=== PATIENT | male | born 1980 | race Caucasian/White ===

== ENCOUNTER 2025-01-08 13:45 | Emergency (ER) | payer OTHER, SELFPAY ==
[2025-01-08 13:51] VITALS: BP 144/91; PULSE 87; RESP 28; TEMP 36.6; O2SAT 100
--- OUTSIDE RECORDS SUMMARY | 2025-01-08 13:52 | XMS_ITS | Clinical Summary ---
Author Organization [facility] Medical Office Building [address] Address [address] [place] [address] Care Team Providers Care Dependency Program Director Name Role Phone Maksim Haines Primary Care Provider [phone] Allergies Active Allergy Reactions Criticality Noted Date Comments Red Dye Stomach upset Reaction: stomach upset, Medications cyclobenzaprine (FLEXERIL) 10 mg tablet Take 1 tablet (10 mg total) by mouth 3 (three) times a day as needed for muscle spasms 12 tablet Active Additional Information Patient not taking.Reported on 09/15/2022 Active Problems Problem Noted Date Diagnosed Date Family history of colon cancer 02/16/2023 Family history of colon cancer in father 022 Overview (06/07/2021): Added automatically from request for surgery [id number] Encounter for screening colonoscopy 06/07/2021 Overview (06/07/2021): Added automatically from request for surgery [id number] Inguinal hernia 05/31/2016 Overview (08/29/2016): Inguinal hernia Immunizations Immunization Administration Dates Next Due Tdap 09/15/2022 Surgical History Surgery Date Site/Laterality Comments OTHER SURGICAL HISTORY TEP endoscopic left inguinal hernia repair COLONOSCOPY 04/07/2023 Family History Medical History Relation Name Comments Colon cancer Father Cancer, colon; Relation Name Status Comments Father Social History Tobacco Use Types Packs/Day Years Used Date Smoking Tobacco: Heavy Smoker Cigarettes Tobacco Cessation:Ready to Q uit: Not Asked; Counseling Given: Not Answered Comments:Smoking History Packs/day: 1 Packs Alcohol Use Standard Drinks/Week Comments Yes 0 (1 standard drink = 0.6 oz pur e alcohol) AUDIT-C Answer Date Recorded Q1: How often do you have a drink containing alc ohol? Monthly or less 04/07/2023 Q2: How many drinks containi ng alcohol do you have on a typical day when you are drinking? 1 or 2 04/07/2023 Q3: How often do you have si x or more drinks on one occasion? Less than monthly 04/07/2023 Personal Safety Answer Date Recorded Have you ever been in or are you currently in a harmful physical or emotional relationship or is someone making you feel afraid or unsafe? Denies 04/07/2023 Sex and Gender Information Value Date Recorded Sex Assigned at Not on file Legal Sex Male 5:47 PM LAN SPECIALIST Gender Identity Not on file Sexual Orientation Not on file Obstetrics History Last Filed Vital Signs Vital Sign Reading Time Taken Comments Blood Pressure 103/63 04/07/2023 10:43 AM LAN SPECIALIST Pulse 76 04/07/2023 10:43 AM LAN SPECIALIST Temperature 36.9 C (98.5 F) 04/07/2023 10:43 AM LAN SPECIALIST Respiratory Rate 18 04/07/2023 10:43 AM LAN SPECIALIST Oxygen Saturation 100% 04/07/2023 10:43 AM LAN SPECIALIST Inhaled Oxygen Concentration - - Weight 70.3 kg (155 lb) 04/07/2023 9:02 AM LAN SPECIALIST Height 172.7 cm (5' 8) 04/07/2023 9:02 AM LAN SPECIALIST Body Mass Index 23.57 04/07/2023 9:02 AM LAN SPECIALIST Plan of Treatment Health Maintenance Due Date Last Done Comments Depression Screening 1980 Hepatitis C Screening 1980 Varicella Vaccines (1 of 2 - 13+ 2-dose series) 1993 Hepatitis B Screening 1998 Regular Well Visit/Exam 18-64 1998 Pneumococcal vaccine <65 (1 of 2 - PCV) 1999 HPV Vaccines (1 - 3-dose SCDM series) 2007 Influenza Vaccine (#1) 2025 DTaP/Tdap/Td Vaccine (3 - Td or Tdap) 09/15/2032, 10/16/2015 Insurance [facility] Advance Directives For more information, please contact: [phone] * Full Code (Latest Code Status on File) Date Activated Date Inactivated Comments 04/07/2023 8:57 AM 04/07/2023 3:22 PM * Full Code Date Activated Date Inactivated Comments 04/07/2023 8:57 AM 04/07/2023 8:57 AM Care Teams Dependency Program Director Relationship Specialty Start Date End Date Maksim Haines PA [address] [place] [address] PCP - General Family Practice 06/07/21
--- OUTSIDE RECORDS SUMMARY | 2025-01-08 13:52 | XMS_ITS | Clinical Summary ---
Author Organization [facility] Address [address] [place] [address] Phone Care Team Providers Care Broodmare Foreman Name Role Phone Maksim Haines Primary Care Provider [phone] Allergies Active Allergy Reactions Criticality Noted Date Comments Red Dye #40 (Allura Red) Nausea 05/24/2022 Medications zolpidem (AMBIEN) 5 MG Tablet Take 1 Tab by mouth nightly as needed. 10 Tab 05/07/2017 Active naproxen (NAPROSYN) 500 MG Tablet Take 1 Tablet by mouth 2 times daily as needed for Mild or more severe pain. 20 Tablet 05/24/2022 Active ondansetron (ZOFRAN) 4 MG Tablet Take 1-2 Tablets by mouth every 8 hours as needed for Nausea - 1st line. 10 Tablet 06/29/2024 Active Immunizations Immunization Administration Dates Next Due TDAP Vaccine 10/16/2015 Social History Tobacco Use Types Packs/Day Years Used Date Smoking Tobacco: Every Day Cigarettes Smokeless Tobacco: Never Alcohol Use Standard Drinks/Week Comments No 0 (1 standard drink = 0.6 oz pur e alcohol) Sex and Gender Information Value Date Recorded Sex Assigned at Not on file Legal Sex Male 12:01 AM CDT Gender Identity Not on file Sexual Orientation Not on file Last Filed Vital Signs Vital Sign Reading Time Taken Comments Blood Pressure 138/84 07/06/2024 1:25 PM BELT LOOP CUTTER Pulse 94 07/06/2024 1:25 PM BELT LOOP CUTTER Temperature 36.6 C (97.8 F) 07/06/2024 1:25 PM BELT LOOP CUTTER Respiratory Rate 17 07/06/2024 1:25 PM BELT LOOP CUTTER Oxygen Saturation 98% 07/06/2024 1:25 PM BELT LOOP CUTTER Inhaled Oxygen Concentration - - Weight 65.8 kg (145 lb) 07/06/2024 1:25 PM BELT LOOP CUTTER Height 172.7 cm (5' 8) 07/06/2024 1:25 PM BELT LOOP CUTTER Body Mass Index 22.05 07/06/2024 1:25 PM BELT LOOP CUTTER Plan of Treatment Health Maintenance Due Date Last Done Comments Hepatitis C Virus (HCV) Screening 1980 Hepatitis B Immunization (1 of 3 - 19+ 3-dose series) 1999 Pneumococcal Immunization Combined (1 of 2 - PCV) 1999 Human Papillomavirus (HPV) Immunization (1 - 3-dose SCDM series) 2007 SARS-COV-2 Immunization (1 - 2023- season) 2024 Influenza Immunization (#1) 2025 Td Immunization Every 10 Yea rs (Adults With 1 Tdap) 09/15/2032 09/15/2022, 10/16/2015 Respiratory Syncytial Virus (RSV) Immunization (Adult) (1 - 1-dose 75+ series) 2055 DTaP/Tdap/Td Immunization Discontinued 2022, 10/16/2015 Meningococcal Immunization (ACWY) Aged Out No longer eligible based on patient's age to complete this topic Rotavirus Immunization Aged Out No lo nger eligible based on patient's age to complete this topic Insurance [address], [place] [id number] MEDICAID [employer] Care Teams Broodmare Foreman Relationship Specialty Start Date End Date Maksim Haines PAC [address] [place] [address] PCP - General Physician Well Service Pump Equipment Operator 05/07/17
[2025-01-08] MEDS: ONDANSETRON HCL ODT 4 MG TABLET PO (14:10)
--- NOTE | 2025-01-08 14:21 | ED_ITS ---
HPI - General Adult General Chief complaint: Nausea/Vomiting/Diarrhea Stated complaint: Vomiting Source: patient Mode of arrival: ambulatory Limitations: no limitations History of Present Illness HPI narrative: Pt presents for nausea and vomiting. 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 He started to feel weak and then experienced nausea and vomiting. He and a coworker went to the gas station for powerade and cigarettes. He was unable to keep the fluids down so came in for further evaluation and treatment. He has chronic low back pain, not worse from his baseline. He reports chills and sweating. He reports right sided ear pain and feels like his right ear is clogged. He denies any other physical symptoms. Related Data Allergies Allergy/AdvReac Type Severity Reaction Status Date / Time red dye Allergy Unknown Unknown Verified 01/08/25 14:07 Review of Systems Review of Systems: CONSTITUTIONAL: Reports weakness and chills. EYES: Denies visual changes, redness, or discharge. ENT: Reports right sided ear pain and sensation that his ear is clogged. Denies rhinorrhea, congestion, and sore throat CARDIOVASCULAR: Denies chest pain, palpitations, or edema. RESPIRATORY: Denies cough or dyspnea. GASTROINTESTINAL: Reports nausea and vomiting. GENITOURINARY: Denies dysuria or hematuria. SKIN: Denies rash or itching. MUSCULOSKELETAL: Reports chronic low back pain, not worse from his baseline. Denies joint pain, or myalgia. NEUROLOGIC: Denies headache, numbness, dizziness, or weakness. PSYCHIATRIC: Denies anxiety or depression. [facility] Past Medical History Medical History No pertinent past medical history Surgical History Surgical History H/O inguinal hernia repair Family History Family History Mother Family history non-contributory Social History Social History Smoking packs per day: 1 Smoking cigarettes per day: 20.0 Smoking status: Current every day smoker Tobacco type: cigarettes Alcohol intake: current Alcohol use details: 3 beers one day per week Substance use: current Substance use type: marijuana Additional occupation/education comments: [employer] business Gender identity (if verbalized by the patient): Male Spiritual care concerns: No Exam Narrative: GENERAL: Well-appearing and well-nourished. Diaphoretic HEAD: Normocephalic, atraumatic. EYES: PERRLA and EOMI. ENT: Nares clear, no rhinorrhea or epistaxis. Mucous membranes moist. Oropharynx without tonsillar hypertrophy exudate or other lesions. Bilateral TMs pearly rosales nonbulging NECK: Supple. No adenopathy or masses. No carotid bruits or JVD CHEST: Clear to auscultation. No respiratory distress. No wheezes rales or rhonchi HEART: Regular rate and rhythm. No murmur heard. Normal peripheral pulses. ABDOMEN: Soft, nontender, nondistended, normal active bowel sounds. EXTREMITIES: Normal range of motion. No edema. SKIN: Warm, dry, no rash. NEURO: No focal deficits. Alert and oriented x3. PSYCH: Normal mood and affect. Course Course Emergency Course: This is a 44 year old male who presented for evaluation of weakness, nausea, vomiting after being out in the heat. He was given Zofran. He was hydrated. His symptoms improved. He requested discharge orders home. He is advised to remain out of the heat and hydrate well today. The event that he develops any muscle aches, worsening weakness he should go to the ER. Pt in agreement with plan of care. Level of Care: Express Care Visit Vital Signs Vital signs: Vital Signs Temperature 36.6 C 01/08/25 13:51 Pulse Rate 87 01/08/25 13:51 Respiratory Rate 28 H 01/08/25 13:51 Blood Pressure 144/91 H 01/08/25 13:51 Pulse Oximetry 100 01/08/25 13:51 Oxygen Delivery Room Air 01/08/25 13:51 Temperature 36.6 C 01/08/25 13:51 Pulse Rate 87 01/08/25 13:51 Respiratory Rate 28 H 01/08/25 13:51 Blood Pressure 144/91 H 01/08/25 13:51 Pulse Oximetry 100 01/08/25 13:51 Oxygen Delivery Room Air 01/08/25 13:51 Medical Decision Making Vital Signs Vital Signs: Vital Signs Temperature 36.6 C 01/08/25 13:51 Pulse Rate 87 01/08/25 13:51 Respiratory Rate 28 H 01/08/25 13:51 Blood Pressure 144/91 H 01/08/25 13:51 Pulse Oximetry 100 01/08/25 13:51 Oxygen Delivery Room Air 01/08/25 13:51 Temperature 36.6 C 01/08/25 13:51 Pulse Rate 87 01/08/25 13:51 Respiratory Rate 28 H 01/08/25 13:51 Blood Pressure 144/91 H 01/08/25 13:51 Pulse Oximetry 100 01/08/25 13:51 Oxygen Delivery Room Air 01/08/25 13:51 Discharge Plan Discharge Clinical Impression: Heat exposure, Nausea & vomiting Patient Disposition: Home Condition: Stable Instructions: Antibiotic Form, Heat Exhaustion (ED), Acute Nausea and Vomiting (DC) Additional Instructions: MAKE SURE TO STAY WELL HYDRATED STAY OUT OF THE HEAT TODAY Patient Language: Pashto Prescriptions: New ondansetron 4 mg tablet,disintegrating 4 mg PO Q6H PRN (Reason: nausea and vomiting) Qty: 15 0RF Follow-up/Referrals: Yancy,ZACH Ortega [Primary Care Provider] - Time of Disposition: 15:03
== END 2025-01-08 15:05 | disposition home or self-care (01) ==
PROVIDERS: Emergency Provider Nurse Practitioner; PCP Physician Assistant
DX: T67.5XXA Heat exhaustion, unspecified, initial encounter (principal); X30.XXXA Exposure to excessive natural heat, initial encounter; R11.2 Nausea with vomiting, unspecified; F17.210 Nicotine dependence, cigarettes, uncomplicated
CPT/HCPCS: 99203; A9270; G0463